=== PATIENT | male | born 1985 | race Caucasian/White ===

== ENCOUNTER 2018-11-14 21:18 | Emergency (ER) | payer OTHER ==
[2018-11-14 21:32] VITALS: BP 148/93; PULSE 84; TEMP 98.6; BMI 32.5
--- NOTE | 2018-11-14 22:14 | PDOC ---
History of Present Illness - General Chief Complaint: Pain Stated Complaint: RT WRIST PAIN Time Seen by Provider: 11/14/18 21:29 History Source: Patient Exam Limitations: No Limitations - History of Present Illness Initial Comments: 11/14/18 22:12 A portion of this note was documented by scribe services under my direction. I have reviewed the details of the note, within reason, and agree with the documentation with the following case summary and management plan written by me. Patient treated in the ED. Nursing notes are reviewed and incorporated into the medical decision-making. Vital signs reviewed. Assessment plan: This is a 33-year-old male who injured his wrist approximately one week ago when it was hit by a lacrosse ball. Patient has tenderness over the lateral wrist. X-ray was done and was negative for any acute pathology. Patient discharged home Past History - Past Medical History Allergies/Adverse Reactions: Allergies Allergy/AdvReac Type Severity Reaction Status Date / Time No Known Allergies Allergy Unverified 06/01/13 18:15 Home Medications: Ambulatory Orders NK [No Known Home Medication] 11/14/18 COPD: No GI Disorders: Yes (abdominal pain/ gastritis) - Immunization History Td Vaccination: Yes TDAP Vaccination: Yes - Suicide/Smoking/Psychosocial Hx Smoking Status: No Smoking History: Never smoked Years of Tobacco Use: 0 Number of Cigarettes Smoked Daily: 0 Cigars Per Day: 0 *Physical Exam - Vital Signs Last Vital Signs Temp Pulse Resp BP Pulse Ox 98.6 F 84 16 148/93 99 11/14/18 21:21 11/14/18 21:21 11/14/18 21:21 11/14/18 21:21 11/14/18 21:21 Moderate Sedation - Procedure Monitoring Vital Signs: Procedure Monitoring Vital Signs Temperature 98.6 F 11/14/18 21:21 Pulse Rate 84 11/14/18 21:21 Respiratory Rate 16 11/14/18 21:21 Blood Pressure 148/93 11/14/18 21:21 O2 Sat by Pulse Oximetry (%) 99 11/14/18 21:21 ED Treatment Course - RADIOLOGY Radiology Studies Ordered: Category Date Time Status WRIST- RIGHT [RAD] Stat Radiology 11/14/18 21:44 Taken *DC/Admit/Observation/Transfer Diagnosis at time of Disposition: Contusion of right wrist Qualifiers: Encounter type: initial encounter Qualified Code(s): S60.211A - Contusion of right wrist, initial encounter - Discharge Dispostion Disposition: HOME Condition at time of disposition: Stable - Referrals - Patient Instructions Additional Instructions: Tylenol or Motrin as needed for pain. Return to the emergency department immediately with ANY new, persistent or worsening symptoms. Continue any medications as previously prescribed by your physician. You should follow up with your primary doctor as soon as possible regarding today's emergency department visit. . Please make sure your doctor reviews the results of your emergency evaluation. Thank you for coming to the Emergency Department today for your care. It was a pleasure to see you today. Please note that your evaluation is INCOMPLETE until you follow-up with your doctor. - Post Discharge Activity
--- NOTE | 2018-11-14 22:17 | PDOC ---
*Physical Exam - Vital Signs Last Vital Signs Temp Pulse Resp BP Pulse Ox 98.6 F 84 16 148/93 99 11/14/18 21:21 11/14/18 21:21 11/14/18 21:21 11/14/18 21:21 11/14/18 21:21 <Ra Valdivia I - Last Filed: 11/14/18 22:16> - Vital Signs Last Vital Signs Temp Pulse Resp BP Pulse Ox 98.6 F 84 16 148/93 99 11/14/18 21:21 11/14/18 21:21 11/14/18 21:21 11/14/18 21:21 11/14/18 21:21 - Physical Exam Comments: 11/14/18 22:17 The patient is a 33 year old male, with no significant PMH, who presents to the emergency department complaining of right wrist pain that began today. The patient states he was playing cricket when the cricket ball hit his right wrist. He notes swelling and pain to the site of injury. The patient denies numbness or tingling. Denies any neurovascular changes. Denies chest pain, shortness of breath, headache and dizziness. PAST MEDICAL HISTORY: no significant history PAST SURGICAL HISTORY: no significant history FAMILY HISTORY: no pertinent history SOCIAL HISTORY: Pt lives with family and is employed. MEDICATIONS: reviewed ALLERGIES: As per nursing notes Adult ROS General: No fevers or chills, no weakness, no weight loss HEENT: No change in vision. No sore throat,. No ear pain CardioVascular: No chest pain or shortness of breath Respiratory:No cough, or wheezing. Gastrointestinal: no nausea, vomiting, diarrhea or constipation, No rectal bleeding Genitourinary: No dysuria, hematuria, or frequency Musculoskeletal: +Right wrist pain Neurologic: No headache, vertigo, dizziness or loss of consciousness Psychiatric: nor depression Skin: No rashes or easy bruising Endocrine: no increased thirst or abnormal weight change Allergic: no skin or latex allergy All other systems reviewed and normal Basic PE GENERAL: The patient is awake, alert, and fully oriented, in no acute distress. HEAD: Normal with no signs of trauma. EYES: Pupils equal, round and reactive to light, extraocular movements intact, sclera anicteric, conjunctiva clear. EXTREMITIES: +Pain on palpation to the right lateral wrist. Decrease ROM, mild swelling and no ecchymosis to the right wrist. Neurovascular and distal intact NEUROLOGICAL: Normal speech, normal gait. PSYCH: Normal mood, normal affect. SKIN: Warm, Dry, normal turgor, no rashes or lesions noted. <Micky Nunez - Last Filed: 11/14/18 22:18> ED Treatment Course - RADIOLOGY Radiology Studies Ordered: Category Date Time Status WRIST- RIGHT [RAD] Stat Radiology 11/14/18 21:44 Taken <Ra Valdivia I - Last Filed: 11/14/18 22:16> Progress Note - Progress Note Progress Note: This chart was opened order to put my note in the chart. As the other chart was accidentally signed prior to completion <Ra Valdivia I - Last Filed: 11/14/18 22:16> *DC/Admit/Observation/Transfer <Ra Valdivia I - Last Filed: 11/14/18 22:16> - Attestations Scribe Attestion: 11/14/18 22:18 Documentation prepared by Micky Nunez, acting as medical technologist microbiology for Ra Valdivia MD. <Micky Nunez - Last Filed: 11/14/18 22:18> Diagnosis at time of Disposition: Contusion of right wrist Qualifiers: Encounter type: initial encounter Qualified Code(s): S60.211A - Contusion of right wrist, initial encounter - Discharge Dispostion Disposition: HOME Condition at time of disposition: Stable - Patient Instructions Additional Instructions: Tylenol or Motrin as needed for pain. Return to the emergency department immediately with ANY new, persistent or worsening symptoms. Continue any medications as previously prescribed by your physician. You should follow up with your primary doctor as soon as possible regarding today's emergency department visit. . Please make sure your doctor reviews the results of your emergency evaluation. Thank you for coming to the Emergency Department today for your care. It was a pleasure to see you today. Please note that your evaluation is INCOMPLETE until you follow-up with your doctor.
== END 2018-11-14 22:16 | disposition home or self-care (01) ==
LOC: FER 21:18
DX: S60.211A Contusion of right wrist, initial encounter (principal); W21.09XA Struck by other hit or thrown ball, initial encounter; Y93.65 Activity, lacrosse and field hockey; Y92.89 Other specified places as the place of occurrence of the external cause
CPT/HCPCS: 73110-TC-RT-FY; 99281-25

== ENCOUNTER 2021-09-18 17:38 | Emergency (ER) | payer OTHER ==
[2021-09-18 17:49] VITALS: BP 122/80; PULSE 75; TEMP 99.2; BMI 32.3
[2021-09-18] MEDS ORDERED: ACETAMINOPHEN 500 MG TABLET (FP) PO ONE (17:56)
[2021-09-18] MEDS ORDERED: ACETAMINOPHEN 500 MG TABLET (FP) ONE (18:13)
[2021-09-18] MEDS ORDERED: MAGNESIUM OXIDE 400 MG TABLET (FP) PO ONE (18:35)
[2021-09-18] MEDS ORDERED: IBUPROFEN 600 MG TABLET (FP) PO ONE ×2 (18:36→18:50)
== END 2021-09-18 20:27 | disposition home or self-care (01) ==
LOC: FER 17:38
DX: R51.9 Headache, unspecified (principal)
CPT/HCPCS: 99283-25

== ENCOUNTER 2025-08-06 19:26 | Emergency (ER) | payer OTHER ==
[2025-08-06 19:36] VITALS: BP 129/80; PULSE 58; RESP 18; TEMP 98.5; BMI 32.3
[2025-08-06 20:49] LABS: ABSOLUTE IMMATURE GRANULOCYTES 0.01 x10^3/uL (0.0-0.031); BASOPHILS # 0.03 x10^3/uL (0.01-0.08); EOSINOPHIL % 2.5 % (0.8-7.0); EOSINOPHILS # 0.19 x10^3/uL (0.04-0.54); MCHC 34.0 g/dl (32.3-36.5); MEAN CELL VOLUME 77.5 fl (79.0-92.2); MEAN PLT VOLUME 9.5 fl (9.4-12.4); MONOCYTE # 0.72 x10^3/uL (0.30-0.82); MONOCYTE % 9.4 % (5.3-12.2); RDW 14.0 % (12.1-15.9)
[2025-08-06 21:00] LABS: ALK PHOS 71 U/L (45-117); CO2 30 mmol/L (21-32); CREATININE 1.1 mg/dl (0.6-1.3); GLUCOSE,RANDOM 85 mg/dl (74-106); SGOT/AST 20 U/L (15-37); SGPT/ALT 34 U/L (7-52); TOT PROT 7.0 g/dl (6.4-8.2)
[2025-08-06 21:02] LABS: EPITHELIAL CELLS 0-5 /hpf
[2025-08-06 22:14] LABS: HCV DIAGNOSTIC IN-HOUSE W/RFLX NON-REACTIVE (NONREACTIVE); HIV INTERPRETATION NEGATIVE (NEGATIVE)
== END 2025-08-06 23:31 | disposition home or self-care (01) ==
LOC: FER 19:26
DX: K76.0 Fatty (change of) liver, not elsewhere classified (principal); R10.A1 Flank pain, right side
CPT/HCPCS: 36415; 74177-TC; 76705-TC; 80053; 81003; 81015; 83690; 85025; 86803; 87389; 99285-25; Q9967